=== PATIENT | female | born 1960 | race African-American/Black ===

== ENCOUNTER → 2017-04-25 | Outpatient (CLI) | payer BC ==
--- NOTE | 2017-04-25 10:24 | RAD ---
Right foot, 3 views, 04/25/2017: History: Toe pain, injury Comparison is made to a study from 03/22/2015. There is moderate bony demineralization. There is a nondisplaced fracture of the midportion of the proximal phalanx of the fourth toe. No other acute fracture or dislocation is identified. Old postsurgical changes involving the hindfoot are again noted with 2 surgical screws traversing the subtalar joint. There is a surgical wire along the lateral margin of the anterior portion of the calcaneus. There is considerable degenerative change at the tibiotalar articulation. IMPRESSION: 1. Demineralization. 2. Acute nondisplaced fracture of the proximal phalanx of the fourth toe. 3. 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
== END | disposition home or self-care (01) ==
LOC: DXRADRC 08:00
PROVIDERS: ATTEND Physician Assistant Medical
DX: S92.534A Nondisplaced fracture of distal phalanx of right lesser toe(s), initial encounter for closed fracture (principal); M19.071 Primary osteoarthritis, right ankle and foot; X58.XXXA Exposure to other specified factors, initial encounter; Y93.89 Activity, other specified; Y92.89 Other specified places as the place of occurrence of the external cause; Y99.8 Other external cause status
CPT/HCPCS: 73630

== ENCOUNTER → 2017-08-13 | Outpatient (CLI) | payer BC, MEDICARE ==
--- NOTE | 2017-08-13 14:40 | RAD ---
Right ankle radiographs History: Right ankle pain, history of surgery. Comparison: Right foot radiographs 04/25/2017. Findings: AP and lateral views of the right ankle. Lateral greater than medial soft tissue swelling is present. Arthrodesis screws are again seen involving the subtalar joint. Surgical wires are also seen adjacent to the lateral aspect of the subtalar joint. There is chronic irregularity of the talar dome as well as degenerative changes in the tibiotalar joint. Small plantar calcaneal and Achilles tendon insertional enthesophytes are seen. No acute osseous abnormality is seen. Impression: 1. Chronic osseous changes. No acute osseous abnormality identified. 2. Lateral greater than medial soft tissue swelling.
== END | disposition home or self-care (01) ==
LOC: PMG 11:27
PROVIDERS: ATTEND Physician Assistant Medical
DX: M19.071 Primary osteoarthritis, right ankle and foot (principal); Z98.890 Other specified postprocedural states
CPT/HCPCS: 73600

== ENCOUNTER → 2018-01-29 | Outpatient (CLI) | payer BC, MEDICARE ==
--- NOTE | 2018-01-29 09:26 | RAD ---
INDICATION: First digit pain. Dropped a music box on it on Friday. TECHNIQUE: 3 views of the right first digit including an AP view of the foot are submitted for review. No comparison is available. FINDINGS: There are degenerative changes at the first metatarsal-phalangeal joint but no fracture or dislocation apparent. There is bone demineralization. There are postsurgical changes of subtalar arthrodesis. IMPRESSION: Degenerative changes at the first metatarsal-phalangeal joint. There is no evidence of an acute fracture or dislocation. Electronically signed by: Shalom Swanson MD (01/29/2018 9:22 AM) [facility]
== END | disposition home or self-care (01) ==
LOC: PMG 09:00
PROVIDERS: ATTEND Physician Assistant
DX: M19.071 Primary osteoarthritis, right ankle and foot (principal); M81.0 Age-related osteoporosis without current pathological fracture
CPT/HCPCS: 73660

== ENCOUNTER → 2020-01-06 | Outpatient (CLI) | payer MEDICARE, BC ==
--- NOTE | 2020-01-06 11:48 | RAD ---
EXAM: DUAL ENERGY X-RAY ABSORPTIOMETRY (DEXA). HISTORY: Postmenopausal screening. Kidney transplant, ovarian failure. FINDINGS: The lowest measured T-score is -2.4 in the lumbar spine, based on a bone mineral density of 0.915 g/cm^2. Refer to the worksheets for full detail. In comparison with the prior study of 09/29/2012, average bone mineral density at the lumbar spine has changed -2.7%, while the average density at the hips has changed -2.0%. IMPRESSION: Low bone mass. Bone mineral density yields a T-score between -1.0 and -2.5. Fracture risk is increased. FRAX was not calculated. METHODOLOGY: Dual energy x-ray absorptiometry was performed to measure bone mineral density. The following analysis is based on the 2019 Official Positions of the International Society for Clinical Densitometry: Measurements of the hips and the average of L1-L4 are preferred. When the spine and/or hip cannot be feasibly measured or interpreted, or in the setting of hyperparathyroidism, distal radial bone mineral density may be measured. The lumbar spine T-score is based on the average bone mineral density of L1-L4. In the setting of artifact or anatomic abnormality, some lumbar levels may be excluded, and the remaining levels used for calculation. A single lumbar level is not used for diagnosis, and if only a single level is available for assessment, another anatomic site will be used to assign a diagnosis. The hip T-score is based on the bone mineral density measurement of the femoral neck or total proximal femur of either side, whichever is lowest. Bilateral mean values are not used for diagnosis. The forearm T-score is derived from 33% of the distal radius of the nondominant forearm. For postmenopausal and perimenopausal women, and men age 50 or older, of all ethnic groups, T-scores are calculated through comparison of the current measurement with the NHANES III database standard for females aged 20-29 years. The lowest T-score of the evaluated anatomic sites is used to assign a diagnosis based on the World Health Organization densitometric classification. In premenopausal females and males younger than age 50, a Z-score is calculated based on population specific reference data for patient sex and self-reported ethnicity. Electronically signed by: Rafi Martinez MD (01/06/2020 11:45 AM) [id number]
--- NOTE | 2020-01-13 15:27 | RAD ---
BILATERAL SCREENING MAMMOGRAM, 3-D History: Routine screening. Comparison: 06/17/2018. Technique: MLO and CC digital tomosynthesis (3D) images obtained. Radiologist reviewed these images on dedicated workstation. Findings: Breast Tissue Density C : The breasts are heterogeneously dense, which may obscure small masses. There are no dominant masses, suspicious microcalcifications, or architectural distortion. IMPRESSION: No mammographic evidence of malignancy. Recommend routine screening. BI-RADS category 1: Negative. The images were reviewed with computer-aided detection. Patient information is entered into reminder system with a target due date for the next screening mammogram. Mammography is the most sensitive method for finding small breast cancers, but it does not detect them all and is not a substitute for careful clinical examination. A negative mammogram does not negate a clinically suspicious finding and should not result in delay in biopsying a clinically suspicious abnormality. "Our facility is accredited by the [employer] Mammography Program." Electronically signed by: Anurag Zabala MD (01/13/2020 3:24 PM) [id number]
== END | disposition home or self-care (01) ==
LOC: MAMMO 10:47
PROVIDERS: ATTEND Physician Assistant Medical
DX: Z12.31 Encounter for screening mammogram for malignant neoplasm of breast (principal); Z00.00 Encounter for general adult medical examination without abnormal findings; Z78.0 Asymptomatic menopausal state
CPT/HCPCS: 77063; 77067; 77080

== ENCOUNTER → 2021-11-21 | Outpatient (CLI) | payer MEDICARE ==
--- NOTE | 2021-11-21 12:06 | RAD ---
EXAM: DUAL ENERGY X-RAY ABSORPTIOMETRY (DEXA). HISTORY: Postmenopausal screening. FINDINGS: The lowest measured T-score is -1.6 in the right hip, based on a bone mineral density of 0. 761 g/cm^2. Refer to the worksheets for full detail. No comparison examinations are available. IMPRESSION: 1. Low bone mass. Bone mineral density yields a T-score between -1.0 and -2.5. Fracture risk is incre ased. 2. FRAX report: Not calculated. METHODOLOGY: Dual energy x-ray absorptiometry was performed to measure bone mineral density. The foll owing analysis is based on the 2019 Official Positions of the International Society for Clinical Dens itometry: Measurements of the hips and the average of L1-L4 are preferred. When the spine and/or hip cannot be feasibly measured or interpreted, or in the setting of hyperparathyroidism, distal radial bone minera l density may be measured. The lumbar spine T-score is based on the average bone mineral density of L1-L4. In the setting of art ifact or anatomic abnormality, some lumbar levels may be excluded, and the remaining levels used for calculation. A single lumbar level is not used for diagnosis, and if only a single level is available for assessment, another anatomic site will be used to assign a diagnosis. The hip T-score is based on the bone mineral density measurement of the femoral neck or total proxima l femur of either side, whichever is lowest. Bilateral mean values are not used for diagnosis. The forearm T-score is derived from 33% of the distal radius of the nondominant forearm. Electronically signed by: Kandy Arthur MD (11/21/2021 12:03 PM) [id number]
--- NOTE | 2021-11-21 16:17 | RAD ---
Bilateral digital screening 2-D and 3-D (digital breast tomosynthesis) mammogram: Reason for examination: Routine screening. Comparison: Mammograms from 06/17/2018 and 01/06/2020. Interpretation was made with the benefit of CAD. FINDINGS: Breast density: Category B. There are scattered areas of fibroglandular density. No suspicious breast mass, malignant appearing calcifications, or architectural distortion is seen. IMPRESSION: No evidence of malignancy. Assessment: BI-RADS 1. Negative. Recommendation: Routine screening mammograms. The patient will receive a letter with the results in the mail. Patient information will be entered i nto the mammography reminder system with a target recall date for the next mammogram. A reminder juventino er will be generated. Electronically signed by: Isabel Red MD (11/21/2021 4:14 PM) [id number]
== END ==
LOC: DXRAD 11:05
PROVIDERS: ATTEND Physician Assistant Medical
DX: Z12.31 Encounter for screening mammogram for malignant neoplasm of breast (principal); Z78.0 Asymptomatic menopausal state
CPT/HCPCS: 77063; 77067; 77080